=== PATIENT | female | born 1960 | race Two or more races ===

== ENCOUNTER 2022-04-26 07:08 | Day surgery (SDC) | payer OTHER ==
[~2022-04-26] VITALS: Ht 167.6 cm; Wt 71.7 kg
[~2022-04-26 07:08] MED LIST: INVOKANA100 MG PO; TERBINAFINE HC250 MG PO
[2022-04-26] MEDS ORDERED: IBU600 MG PO (14:33)
== END 2022-04-26 17:25 | disposition home or self-care (01) ==
LOC: CIR.AMB 07:08
PROVIDERS: ATTEND Obstetrics & Gynecology Gynecology
DX: N84.0 Polyp of corpus uteri (principal); Q51.818 Other congenital malformations of uterus; Z88.2 Allergy status to sulfonamides; Z88.8 Allergy status to other drugs, medicaments and biological substances; Z20.822 Contact with and (suspected) exposure to COVID-19; Z91.041 Radiographic dye allergy status; J45.909 Unspecified asthma, uncomplicated; E11.9 Type 2 diabetes mellitus without complications